=== PATIENT | female | born 1985 | race Hispanic/Latino ===

== ENCOUNTER 2016-09-06 16:56 | Emergency (ER) | payer BC, MEDICAID, OTHER ==
[2016-09-06 16:56] VITALS: BMI 29.2
[2016-09-06 17:05] VITALS: RESP 20
[2016-09-06] MEDS ORDERED: Naproxen 550 mg Tab PO STA (17:42)
[2016-09-06] MEDS ORDERED: Naproxen 550 mg Tab PO ONE (17:45)
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
[2016-09-06 18:20] VITALS: BP 123/72; PULSE 70; TEMP 98
[2016-09-06 18:23] VITALS: O2SAT 96
== END 2016-09-06 18:20 | disposition home or self-care (01) ==
LOC: C.ER 16:56
DX: S16.1XXA Strain of muscle, fascia and tendon at neck level, initial encounter (principal); S80.01XA Contusion of right knee, initial encounter; M54.9 Dorsalgia, unspecified; V89.2XXA Person injured in unspecified motor-vehicle accident, traffic, initial encounter